=== PATIENT | female | born 1975 | race Two or more races ===

== ENCOUNTER → 2020-05-01 09:15 | Outpatient (BNVA) | payer OTHER, SELFPAY | PROVIDERS: PCP Physician Assistant; Visit Provider Physician Assistant | DX: E66.9 Obesity, unspecified (principal); Z68.32 Body mass index [BMI] 32.0-32.9, adult; K21.9 Gastro-esophageal reflux disease without esophagitis; R63.5 Abnormal weight gain; R73.03 Prediabetes; I10 Essential (primary) hypertension; Z98.84 Bariatric surgery status; Z98.890 Other specified postprocedural states; Z87.19 Personal history of other diseases of the digestive system | CPT/HCPCS: 99202 ==

== ENCOUNTER 2020-05-08 09:18 | Outpatient (REF) | payer OTHER, SELFPAY ==
--- NOTE | 2020-05-08 09:31 | FL_ITS ---
PROCEDURE: XR GI SERIES CLINICAL INFORMATION: Abnormal weight gain. COMPARISON: None TECHNIQUE: Routine upper GI air-contrast study was performed. FINDINGS: Following oral administration of thick barium and effervescent granules there is normal propagation of bolus from the oral cavity through the pharynx, esophagus into stomach without any evidence of obstruction, narrowing or stricture. No laryngeal penetration or aspiration seen. On placing patient supine and prone lying there is evidence of previous gastric bypass surgery with end to side anastomosis of stomach and the duodenum with widely patent anastomosis. There is spontaneous passage of oral contrast and gas through the anastomosis. However, patient did have a small hiatal hernia and moderate gastroesophageal reflux in lying position. FLUOROSCOPY TIME: 1.4 minutes. DOSE AREA PRODUCT: 138.0 uGy-m2 (microgray-meter squared). FL/FL upper GI series IMPRESSION: Evidence of previous gastric bypass surgery with widely patent gastroduodenal anastomosis. There is a small hiatal hernia with moderate to significant gastroesophageal reflux.
== END 2020-05-08 09:19 | disposition home or self-care (01) ==
LOC: HO.XRAY 09:18
PROVIDERS: PCP Physician Assistant; Visit Provider Physician Assistant
DX: Z01.818 Encounter for other preprocedural examination (principal); E66.9 Obesity, unspecified; K21.9 Gastro-esophageal reflux disease without esophagitis
CPT/HCPCS: 74240